=== PATIENT | male | born 1950 | race Caucasian/White ===

== ENCOUNTER 2019-02-15 21:30 | Emergency (ER) ==
[2019-02-15 21:42] VITALS: BP 173/96; TEMP 96.3; BMI 32.8
[2019-02-15] MEDS ORDERED: GI COCKTAIL PO STA (21:47)
--- NOTE | 2019-02-15 21:49 | ED.PDOC ---
General ED Provider: Dr. TORITO MILLIGAN MD Chief Complaint: Chest Pain Stated Complaint: epigastric chest pain after eating Time Seen by Physician: 21:40 Mode of Arrival: Wheelchair Information Source: Family Exam Limitations: No limitations Primary Care Provider: [facility] and Triage Documentation Reviewed and Agree: Yes Does patient meet sepsis criteria?: No If yes, has appropriate treatment been initiated?: Yes System Inflammatory Response Syndrome: Not Applicable Sepsis Protocol: For patient's 13 years and over: Temp is 96.8 and below OR 101 and greater Pulse >90 BPM Resp >20/minute Acutely Altered Mental Status Are patient's symptoms suggestive of a new infection, such as: -Pneumonia -Skin, Soft Tissue -Endocarditis -UTI -Bone, Joint Infection -Implantable Device -Acute Abdominal Infection -Wound Infection -Meningitis -Blood Stream Catheter Infection -Unknown Review of Systems - Review Of Systems Constitutional: Reports: Other (little headache) Eyes: Reports: No symptoms Ears, Nose, Mouth, Throat: Reports: No symptoms Respiratory: Reports: No symptoms Cardiac: Reports: Chest pain GI: Reports: Abdominal pain (1 out of 10) : Reports: No symptoms Musculoskeletal: Reports: No symptoms Skin: Reports: No symptoms Neurological: Reports: No symptoms Endocrine: Reports: No symptoms Hematologic/Lymphatic: Reports: No symptoms All Other Systems: Reviewed and Negative Past Medical History - Past Medical History Previously Healthy: Yes Endocrine: Reports: DM 2, Hypothyroid Cardiovascular: Reports: Hypertension Respiratory: Reports: None Hematological: Reports: None Gastrointestinal: Reports: None Genitourinary: Reports: None Neuro/Psych: Reports: None Musculoskeletal: Reports: None Cancer: Reports: None - Surgical History General Surgical History: Reports: None - Family History Family History: Reports: None - Social History Smoking Status: Former smoker Hx Substance Use: No Alcohol Screening: None - Immunizations Tetanus Shot up to Date: No Physical Exam - Physical Exam Appearance: Obese Ill-appearing: None Pain Distress: None Eyes: ERIK, EOMI, Conjunctiva clear ENT: Ears normal, Nose normal, Oropharynx normal Respiratory: Airway patent, Breath sounds clear, Breath sounds equal, Respirations nonlabored Cardiovascular: RRR, Pulses normal, No rub, No murmur GI/: Soft, Nontender, No masses, Bowel sounds normal, No Organomegaly Musculoskeletal: Normal strength, ROM intact, No edema, No calf tenderness Skin: Warm, Dry, Normal color Neurological: Sensation intact, Motor intact, Reflexes intact, Cranial nerves intact, Alert, Oriented Psychiatric: Affect appropriate, Mood appropriate Critical Care Note - Critical Care Note Total Time (mins): 0 Course - Course Hematology/Chemistry: 02/15/19 22:31 Orders, Labs, Meds: Lab Review 02/15/19 02/15/19 22:31 22:31 WBC 5.81 RBC 4.79 Hgb 14.6 Hct 43.1 MCV 90.0 MCH 30.5 MCHC 33.9 RDW Coeff of Kristin 13.1 Plt Count 212 Immature Gran % (Auto) 0.5 Neut % (Auto) 66.3 Lymph % (Auto) 24.1 [place] % (Auto) 6.7 Eos % (Auto) 2.1 Baso % (Auto) 0.3 Immature Gran # (Auto) 0.0 Neut # (Auto) 3.9 Lymph # (Auto) 1.4 [place] # (Auto) 0.4 Eos # (Auto) 0.1 Baso # (Auto) 0.0 Troponin I < 0.012 Orders Category Date Time Status EKG-(ED ONLY) Stat CARDIO 02/15/19 21:47 Completed CBC W/ AUTO DIFF Stat LAB 02/15/19 22:31 Completed TROPONIN I Stat LAB 02/15/19 22:31 Completed Ketorolac Tromethamine [Toradol] MEDS 02/15/19 23:03 Stat 30 mg IM ONCE STA Mag-Al Plus//Lidocaine [Gi Cocktail] MEDS 02/15/19 21:47 Discontinued 30 ml PO ONCE STA Simethicone [Mylicon] MEDS 02/15/19 23:02 Discontinued 160 mg PO ONCE STA CXR [CHEST, 1V AP ONLY] Stat RADS 02/15/19 21:48 Taken Medications Discontinued Medications Generic Name Dose Route Start Last Admin Trade Name Freq PRN Reason Stop Dose Admin Al Hydroxide/Mg Hydroxide 30 ml 02/15/19 21:47 02/15/19 21:55 Gi Cocktail PO 02/15/19 21:48 30 ml ONCE STA Administration Simethicone 160 mg 02/15/19 23:02 Mylicon PO 02/15/19 23:03 ONCE STA Vital Signs: Temp Pulse Resp BP Pulse Ox 02/15/19 21:31 96.3 F L 56 L 20 173/96 H 95 ISMAEL Risk Score ISMAEL Risk Score: Risk Score Odds of by 30D 0 0.1 (0.1-0.2) 1 0.3 (0.2-0.3) 2 0.4 (0.3-0.5) 3 0.7 (0.6-0.9) 4 1.2 (1.0-1.5) 5 2.2 (1.9-2.6) 6 3.0 (2.5-3.6) 7 4.8 (3.8-6.1) Departure - Departure Time of Disposition: 23:22 Disposition: HOME SELF-CARE Discharge Problem: Epigastric abdominal pain Headache Qualifiers: Headache type: tension-type Headache chronicity pattern: acute headache Intractability: not intractable Qualified Code(s): G44.209 - Tension-type headache, unspecified, not intractable Instructions: Epigastric Pain (ED) Condition: Good Pt referred to PMD for follow-up: Yes IPMP verified?: No Allergies/Adverse Reactions: Allergies No Known Allergies Allergy (Unverified 02/15/19 21:42) Home Medications: Ambulatory Orders 1 [Unobtainable] 02/15/19 Transfer Form Completed: No Disposition Discussed With: Patient, Family
[2019-02-15] MEDS ORDERED: MYLICON PO STA (23:02)
[2019-02-15] MEDS ORDERED: TORADOL IM STA (23:03)
--- NOTE | 2019-02-16 07:37 | DI ---
EXAM: Chest one view HISTORY: Chest, epigastric pain COMPARISON: None TECHNIQUE: Single view of the chest was performed FINDINGS: The lungs are clear. There is no pleural effusion or pneumothorax. The heart is normal i n size. The mediastinal contour is normal. There are no acute abnormalities of the bones. IMPRESSION: No acute cardiopulmonary process.
== END 2019-02-15 23:45 | disposition home or self-care (01) ==
LOC: ED 21:30
DX: R10.13 Epigastric pain (principal); G44.209 Tension-type headache, unspecified, not intractable; I10 Essential (primary) hypertension; E11.9 Type 2 diabetes mellitus without complications; E03.9 Hypothyroidism, unspecified
CPT/HCPCS: 36415; 84484; 85025; 93005; 93010; 96372; 99283